=== PATIENT | female | born 1995 | race Two or more races ===

== ENCOUNTER 2024-07-28 10:42 | Outpatient (REF) | payer MEDICAID, OTHER, SELFPAY ==
--- NOTE | ~2024-07-28 | US_ITS ---
EXAMINATION: US DIAGNOSTIC ULTRASOUND BREAST, LEFT CLINICAL INFORMATION: 28-year-old female. Per patient, left breast pain x1 year 2-4 o'clock axis. Per provider, small 0.5 cm palpable nodules located at 6:00 and 7:00 left breast. COMPARISON: None available. TECHNIQUE: Ultrasound of the left breast is performed with real-time tsang scale imaging and color Doppler. Left breast was scanned from the 2:00 to the 9:00 axis to include both the areas of pain, and the palpable purported nodules at 6:00 and 7:00. FINDINGS: Real-time tsang scale and color Doppler ultrasound imaging of the 2:00 to the 9:00 axis left breast demonstrates dense breast parenchyma with a solitary small simple cyst measuring 6 x 4 x 3 mm at the 2:00 axis, 4 cm from the nipple. This does not appear to correlate with palpable region. Only dense tissue is seen at the regions of palpable concern 6:00 and 7:00 axis left breast. There is no mass, abnormal shadowing, additional cystic abnormality, or area of architectural abnormality. US/US breast LT limited mamm only IMPRESSION: -No findings suspicious for malignancy left breast. -Benign tiny incidental cyst left breast 2:00 axis, 4 cm from the nipple. -Only dense breast tissue seen in the regions of palpable concern left breast 6:00 and 7:00 axis. Recommend clinical management. ASSESSMENT: BI-RADS 2: Benign RECOMMENDATION: 1. Patient should be managed based on the clinical impression. Decision to proceed with biopsy should be based on clinical grounds and degree of clinical concern. Electronically signed by: Stephan Rodriguez MD 07/28/2024 12:16 PM EDT
== END 2024-07-28 10:43 | disposition home or self-care (01) ==
LOC: HO.MAMMO 10:42
PROVIDERS: PCP Internal Medicine; Visit Provider Internal Medicine
DX: N63.24 Unspecified lump in the left breast, lower inner quadrant (principal)
CPT/HCPCS: 76642

== ENCOUNTER → 2024-07-28 11:30 | Outpatient (BNV) | payer SELFPAY | PROVIDERS: PCP Internal Medicine; Visit Provider Radiology Diagnostic Radiology | DX: N63.21 Unspecified lump in the left breast, upper outer quadrant (principal) | CPT/HCPCS: 76642 ==

== ENCOUNTER 2025-08-09 | Outpatient (REF) | payer SELFPAY ==
--- OUTSIDE RECORDS SUMMARY | 2025-08-09 14:00 | XMS_ITS | Encounter Summary ---
Author Organization [employer] Address [address] [place] [address] 7 [place] [address] Care Team Providers Care Assistant Produce Manager Name Role Phone Anya Simental MD Primary Care Provide r Reason for Visit * Reason Comments pap Encounter Details Date Type Department Care Team (Latest Contact Info) Description 08/09/2025 2:00 PM EDT Procedure Visit [facility] [address], [place] [phone] Teresa Espana CNM [address] [place] [address] Encounter for initial insertion of intrauterine contraceptive device (Primary Dx); Cervical cancer screening; Encntr screen for infections w sexl mode of transmiss Social History Tobacco Use Types Packs/Day Years Used Date Smoking Tobacco: Never Passive Smoke Exposure: Never Smokeless Tobacco: Never Tobacco Cessation:Counseling Given: Not Answered Alcohol Use Standard Drinks/Week Comments Never 0 (1 standard drink = 0.6 oz pur e alcohol) Comments Unknown Intention Date Recorded No desire to become (finding) 1 Sex and Gender Information Value Date Recorded Sex Assigned at Female 05/22/2023 1:49 PM EDT Legal Sex Female 1:43 PM EDT Gender Identity Female 05/22/2023 1:49 PM EDT Sexual Orientation Straight 05/22/2023 1: 49 PM EDT documented as of this encounter Last Filed Vital Signs Vital Sign Reading Time Taken Comments Blood Pressure 108/70 08/09/2025 2:11 PM EDT Pulse 64 08/09/2025 2:11 PM EDT Temperature 37.2 C (98.9 F) 08/09/2025 2:11 PM EDT Respiratory Rate 14 08/09/2025 2:11 PM EDT Oxygen Saturation 98% 08/09/2025 2:11 PM EDT Inhaled Oxygen Concentration - - Weight 71.7 kg (158 lb) 08/09/2025 2:11 PM EDT Height - - Body Mass Index 31.85 07/14/2024 10:46 AM EDT documented in this encounter Progress Notes * Teresa Espana CNM - 08/09/2025 2:00 PM EDT Subjective Patient ID: Sheron Mcdaniel is a 29 y.o. female who presents for IUD insertion Prescribed progestin only pill as bridge method at last visit but she didn't start it. Last sexually active without a condom between 1-2 weeks ago. LMP 07/18/2025. Reviewed risk of today andthat testing today may not be accurate. Will defer IUD insertion today. Would like to do pap today. Review of Systems Genitourinary: Negative for dysuria, menstrual problem, pelvic pain, vaginal bleeding, vaginal discharge and vaginal pain. Objective BP 108/70 (BP Location: Left arm, Patient Position: Sitting, BP Cuff Size: Adult) Pulse 64 Temp98.9 ??F (37.2 ??C) (Oral) Resp 14 Wt 158 lb (71.7 kg) LMP 07/18/2025 (Exact Date) SpO2 98% BMI 31.85 kg/m?? Physical Exam Air Transportation Provider present: declines lodging facilities manager. Constitutional: Appearance: Normal appearance. Genitourinary: General: Normal vulva. Labia: Right: No rash, tenderness, lesion or injury. Left: No rash, tenderness, lesion or injury. Vagina: Normal. No signs of injury and foreign body. No vaginal discharge, erythema, tenderness, bleeding or lesions. Cervix: No cervical motion tenderness, discharge, friability, lesion, erythema, cervical bleeding or eversion. Uterus: Normal. Not enlarged and not tender. Adnexa: Right adnexa normal and left adnexa normal. Right: No mass, tenderness or fullness. Left: No mass, tenderness or fullness. Neurological: Mental Status: She is alert. Psychiatric: Mood and Affect: Mood normal. Behavior: Behavior normal. Assessment/Plan Diagnoses and all orders for this visit: Encounter for initial insertion of intrauterine contraceptive device - POCT , urine manually resulted Last sexually active without a condom between 1 and 2 weeks ago. Reviewed risk of today and that testing today may not be accurate. Will defer IUD insertion today. Would like to do pap today. Declines bridge method. Together we agree to have her return for IUD insertion next week. She expects menses in next few days. Please let me know if no menses when expected. Either abstain from sex or use condoms consistently until appointment. Offered condoms today, declined. Would like Liletta at next appointment. Advised to take Tylenol or ibuprofen with food 1 hour prior to appointment. Cervical cancer screening - Pap Smear Pap today. Repeat 3 years if normal. Encntr screen for infections w sexl mode of transmiss - STI testing add on (NG, CT, Trich) Pap based STI testing. documented in this encounter Plan of Treatment Upcoming Encounters Date Type Department Care Team (Late st Contact Info) Description 08/17/2025 10:30 AM EST Procedure Visit [facility] [address] [place] [address] Teresa Espana CNM [address] [place] [address] Scheduled Orders Name Type Priority Associated Diagnoses Orde r Schedule Pap Smear Pathology and Cytology Routine Cervical cancer screening Ordered: 08/09/2025 STI testing add on (NG, CT, Trich) Pathology and Cytology Routine Encntr screen for infections w sexl mode of transmiss Ordered: 08/09/2025 documented as of this encounter Procedures Procedure Name Priority Date/Time Associated Diagnosis Comments POCT , URINE Routine 08/09/2025 2:50 PM EDT Encounter for initial insertion of intrauterine contraceptive device documented in this encounter Results * POCT , urine manually resulted (08/09/2025 2:50 PM EDT) Preg Test, Ur Negative Negative, Indeterminate, None Detected, Invalid, Specimen unsatisfactory for evaluation, Weakly Positive, 2+ QC Media Lot # [id number] Lot# Expiration Date [id number] Urine 08/09/2025 2:50 PM EDT Teresa Espana CNM POINT OF CARE TEST ENTER/ EDIT ORDERABLES Final Result documented in this encounter Visit Diagnoses Diagnosis Encounter for initial insertion of intrauterine contraceptive device- Primary Cervical cancer screening Screening for malignant neoplasm of the cervix Encntr screen for infections w sexl mode of transmiss documented in this encounter Care Teams Assistant Produce Manager Relationship Specialty Start Date End Date Anya Simental MD [address] [place] [address] PCP - General Internal Medicine 06/07/25 documented as of this encounter
--- OUTSIDE RECORDS SUMMARY | 2025-08-10 09:13 | XMS_ITS | Encounter Summary ---
Author Organization [employer] Address [address] [place] [address] 7 [place] [address] Care Team Providers Care Corrections Nurse Name Role Phone Anya Simental MD Primary Care Provide r Encounter Details Date Type Department Care Team (Latest Contact Info) Description 08/09/2025 Travel Social History Tobacco Use Types Packs/Day Years Used Date Smoking Tobacco: Never Passive Smoke Exposure: Never Smokeless Tobacco: Never Alcohol Use Standard Drinks/Week Comments Never 0 (1 standard drink = 0.6 oz pur e alcohol) Comments Unknown Sex and Gender Information Value Date Recorded Sex Assigned at Female 05/22/2023 1:49 PM EDT Legal Sex Female 1:43 PM EDT Gender Identity Female 05/22/2023 1:49 PM EDT Sexual Orientation Straight 05/22/2023 1: 49 PM EDT documented as of this encounter Plan of Treatment Upcoming Encounters Date Type Department Care Team (Late st Contact Info) Description 08/17/2025 10:30 AM EST Procedure Visit [facility] [address] [place] [address] Teresa Espana CNM [address] [place] [address] documented as of this encounter Visit Diagnoses Not on filedocumented in this encounter Care Teams Corrections Nurse Relationship Specialty Start Date End Date Anya Simental MD [address] [place] [address] PCP - General Internal Medicine 06/07/25 documented as of this encounter
--- OUTSIDE RECORDS SUMMARY | 2025-08-10 09:13 | XMS_ITS | Clinical Summary ---
Author Organization [employer] Address [address] [place] [address] [address] [place] [address] Care Team Providers Care Superintendent Storage Area Name Role Phone Anya Simental MD Primary Care Provide r Allergies No known active allergies Medications Drospirenone (Slynd) 4 MG tablet Take 1 tablet by mouth Once per day. 28 tablet 11 07/13/2025 Active Active Problems Problem Noted Date Diagnosed Date Varicose veins of leg with pain, left 07/14/2024 Assessment & Plan (07/14/2024 11:38 AM EDT): I recommended compression stockings Vascular referral in Breast nodule 07/14/2024 Nexplanon removal 07/14/2024 Screening examination for STI 07/14/2024 Irregular periods 07/14/2024 Encounters Date Type Department Care Team Description 08/09/2025 2:00 PM EDT Procedure Visit [facility] [address] [place] [phone] Teresa Espana CNM Encounter for initial insertion of intrauterine contraceptive device (Primary Dx); Cervical cancer screening; Encntr screen for infections w sexl mode of transmiss 08/09/2025 Travel 07/13/2025 2:45 PM EDT Procedure Visit [facility] [address] [place] [address] Teresa Espana CNM Nexplanon removal (Primary Dx); Family planning counseling 07/13/2025 Travel 06/07/2025 Telephone [facility] [address] [place] [address] [phone] Anya Simental MD Telephone Call 05/24/2025 Telephone [facility] [address] [place] [address] Teresa Espana CNM chart prep 05/18/2025 Travel from Last 3 Months Social History Tobacco Use Types Packs/Day Years [...] Orientation Straight 05/22/2023 1: 49 PM EDT Last Filed Vital Signs Vital Sign Reading Time Taken Comments Blood Pressure 108/70 08/09/2025 2:11 PM EDT Pulse 64 08/09/2025 2:11 PM EDT Temperature 37.2 C (98.9 F) 08/09/2025 2:11 PM EDT Respiratory Rate 14 08/09/2025 2:11 PM EDT Oxygen Saturation 98% 08/09/2025 2:11 PM EDT Inhaled Oxygen Concentration - - Weight 71.7 kg (158 lb) 08/09/2025 2:11 PM EDT Height 150 cm (4' 11.06 ) 07/14/2024 10:46 AM ED T Body Mass Index 31.85 07/14/2024 10:46 AM EDT Plan of Treatment Upcoming Encounters Date Type Department Care Team (Late st Contact Info) Description 08/17/2025 10:30 AM EST Procedure Visit [facility] [address] [place] [phone] Teresa Espana CNM [address] [place] [address] Health Maintenance Due Date Last Done Comments Depression Screening 1995 HIV Screening 1995 SDOH Screening 1995 Alcohol/Substance Use Screening 2007 HPV Vaccines (1 - 3-dose series) 12/11/2010 Hepatitis C Screening 12/11/2013 DTaP/Tdap/Td Vaccines (1 - Tdap) 12/11/2014 Hepatitis B Vaccines (1 of 3 - 19+ 3-dose series) 12/11/2014 Pap Smear 12/11/2016 Dental Oral Exam 03/31/2025 09/29/2024 Dental Prophylaxis 03/31/2025 09/29/2024 COVID-19 Vaccine (1 - 2023-2 5 season) 2025 Influenza Vaccine (#1) 2025 Dental X-Ray: Bitewings 09/30/2025 09/29/2024 Disability Screening 05/18/2026 05/18/2025 Family Planning (PISQ) 08/09/2026 08/09/2025 Tobacco Screening 08/09/2026 08/09/2025 Dental X-Ray: Full Mouth 09/30/2027 09/29/2024 Zoster Vaccines (1 of 2) 12/11/2045 RSV Patients and Pa tients Aged 60 years or older (1 - 1-dose 75+ series) 12/11/2070 HIB Vaccines Aged Out No longer eligi ble based on patient's age to complete this topic Hepatitis A Vaccines Aged Out No long er eligible based on patient's age to complete this topic IPV Vaccines Aged Out No longer eligi ble based on patient's age to complete this topic Meningococcal B Vaccine Aged Out No l onger eligible based on patient's age to complete this topic Meningococcal Vaccine Aged Out No quinten mango eligible based on patient's age to complete this topic Pneumococcal Vaccine: Pediat rics (0 to 5 Years) and At-Risk Patients (6 to 49) Years Aged Out No longer eligi ble based on patient's age to complete this topic RSV under 20 months Aged Out No longe r eligible based on patient's age to complete this topic Rotavirus Vaccines Aged Out No longer eligible based on patient's age to complete this topic Procedures Procedure Name Priority Date/Time Associated Diagnosis Comments POCT , URINE Routine 08/09/2025 2:50 PM EDT Encounter for initial insertion of intrauterine contraceptive device GA REMOVAL NON-BIODEGRADABLE DRUG DELIVERY IMPLANT Routine 07/13/2025 2:55 PM EDT Nexplanon removal PROPHYLAXIS - ADULT Routine 09/29/2024 1 0:00 AM EST INTRAORAL - COMPLETE SERIES OF RADIOGRAPHIC IMAGES Routine 09/29/2024 10:00 AM EST PERIODIC ORAL EVALUATION - ESTABLISHED PATIENT Routine 09/29/2024 10:00 AM EST from Last 3 Months or Most Recently Relevant to Health Maintenance Results * POCT , urine manually resulted (08/09/2025 2:50 PM EDT) Preg Test, Ur Negative Negative, Indeterminate, None Detected, Invalid, Specimen unsatisfactory for evaluation, Weakly Positive, 2+ QC Media Lot # [id number] Lot# Expiration Date [id number] Urine 08/09/2025 2:50 PM EDT Teresa Espana CNM POINT OF CARE TEST ENTER/ EDIT ORDERABLES Final Result * GA REMOVAL NON-BIODEGRADABLE DRUG DELIVERY IMPLANT (07/13/2025 2:55 PM EDT) Narrative Teresa Espana CNM - 07/13/2025 2:55 PM EDT Teresa Espana CNM 07/13/2025 3:36 PM Insertion/Removal of Contraceptive Capsule Date/Time: 07/13/2025 2:55 PM Performed by: Teresa Espana CNM Authorized by: Teresa Espana CNM Confirmed correct patient, procedure, site, and patient consented: Yes Participating Staff: Teresa Espana CNM Participating Staff: Fidelina Zimmerman [place] Consent: Consent obtained: Verbal and written Consent given by: Patient Procedural risks and benefits discussed: Yes Patient questions answered: yes Instructions and paperwork completed: yes Dinosaur Protocol: Patient states understanding of procedure being performed: yes Site marked: yes Indication: Indication: presence of non-biodegradable drug delivery implant Pre-procedure: Pre-procedure timeout performed: yes Prepped with: povidone-iodine Local anesthetic: 2ml 2% lidocaine. The site was cleaned and prepped in a sterile fashion: yes Procedure: Procedure: Removal Small stab incision was made in arm: yes Left/right: Left Palpation confirms placement by provider and patient: yes Site was closed with steri-strips and pressure bandage applied: yes Comments: Due to curvature of one implant, two small incisions required for removal, one for each implant. Implants removed intact. Teresa Espana CNM IN CLINIC/BEDSIDE ORDERAB LES Final Result from Last 3 Months Insurance [facility] F[facility] D[facility]AL-[facility] ADULT DENTAL - HSN FULL (MEDICAID) Care Teams Superintendent Storage Area Relationship Specialty Start Date End Date Anya Simental MD [address] [place] [phone] PCP - General Internal Medicine 06/07/25
[2025-08-14 20:33] LABS: C. trachomatis RNA TMA NOT DETECTED (NOT DETECTED); N. gonorrhoeae RNA TMA NOT DETECTED (NOT DETECTED); Trichomonas (NAAT) NOT DETECTED (NOT DETECTED)
== END 2025-08-09 00:01 | disposition home or self-care (01) ==
LOC: HO.LNP
PROVIDERS: Visit Provider Advanced Practice Midwife
DX: Z12.4 Encounter for screening for malignant neoplasm of cervix (principal); Z20.2 Contact with and (suspected) exposure to infections with a predominantly sexual mode of transmission
CPT/HCPCS: 87491; 87591; 87661; 88175

== ENCOUNTER 2025-08-17 10:53 | Outpatient (REF) | payer MEDICAID, OTHER, SELFPAY ==
--- OUTSIDE RECORDS SUMMARY | 2025-08-17 10:30 | XMS_ITS | Encounter Summary ---
Author Organization [employer] Address [address] [place] [address] 7 [place] [address] Care Team Providers Care Operations Engineer Name Role Phone Anya Simental MD Primary Care Provide r Reason for Visit * Reason Comments procedure Encounter Details Date Type Department Care Team (Latest Contact Info) Description 08/17/2025 10:30 AM EST Procedure Visit [facility] [address] [place], [place] [phone] Teresa Espana CNM [address] [place] [address] Encounter for IUD insertion (Primary Dx); Encounter for test, result positive Social History Tobacco Use Types Packs/Day Years Used Date Smoking Tobacco: Never Passive Smoke Exposure: Never Smokeless Tobacco: Never Tobacco Cessation:Counseling Given: Not Answered Alcohol Use Standard Drinks/Week Comments Never 0 (1 standard drink = 0.6 oz pur e alcohol) Estimated Date of Delivery Comme nts Yes 04/24/2026 Sex and Gender Information Value Date Recorded Sex Assigned at Female 05/22/2023 1:49 PM EDT Legal Sex Female 1:43 PM EDT Gender Identity Female 05/22/2023 1:49 PM EDT Sexual Orientation Straight 05/22/2023 1: 49 PM EDT documented as of this encounter Last Filed Vital Signs Vital Sign Reading Time Taken Comments Blood Pressure 100/60 08/17/2025 10:28 AM EST Pulse 70 08/17/2025 10:28 AM EST Temperature 36.6 C (97.9 F) 08/17/2025 10:28 AM EST Respiratory Rate 14 08/17/2025 10:28 AM EST Oxygen Saturation 100% 08/17/2025 10:28 AM EST Inhaled Oxygen Concentration - - Weight 70.5 kg (155 lb 6.4 oz) 08/17/2025 10:28 AM EST Height - - Body Mass Index 31.33 07/14/2024 10:46 AM EDT documented in this encounter Progress Notes * Teresa Espana, ARCHIE - 08/17/2025 10:30 AM EST Subjective Patient ID: Sehron Mcdaniel is a 29 y.o. female who presents for IUD Insertion deferred at last visit due to inability to rule out . Would like Gini. She had some cramping end of last week, then 2 days of light bleeding starting 08/14. Pap pending, Gonorrhea/Chlamydia/trichomonas negative 08/09/2025. Urine hcg positive today. EGA 4w2d. Had negative home test yesterday. Denies nausea, vomiting or breast tenderness. No current bleeding or cramping. Shocked by news, requested to call partner to discuss further. I left the room during this time, then returned to finish visit. Review of Systems Objective BP 100/60 (BP Location: Left arm, Patient Position: Sitting, BP Cuff Size: Adult) Pulse 70 Temp97.9 ??F (36.6 ??C) (Oral) Resp 14 Wt 155 lb 6.4 oz (70.5 kg) LMP 07/18/2025 (Exact Date) SpO2 100% BMI 31.33 kg/m?? Physical Exam Constitutional: Appearance: Normal appearance. Neurological: Mental Status: She is alert. Psychiatric: Mood and Affect: Mood normal. Behavior: Behavior normal. Assessment/Plan Diagnoses and all orders for this visit: Encounter for IUD insertion - POCT , urine manually resulted Positive test today. IUD contraindicated, not inserted. Recent bleeding likely implantation bleeding but will rule out ectopic. For serum hcg today, will repeat in 48h. Will contact with results and plan. Seek care urgently if pelvic pain or bleeding recurs. Encounter for test, result positive - hCG, Total, Quantitative; Future Unplanned , undecided about plan and would like to discuss options. Discussed options, continue and care for baby, continue and proceed with adoption, terminate . Sheron is uncertain, but would [facility]. Seek care urgently if bleeding or abdominal pain. Would like bloodwork to confirm urine results. Reviewed that we should check hcg today and repeat in 48h due to light bleeding to rule out ectopic. documented in this encounter Plan of Treatment Scheduled Orders Name Type Priority Associated Diagnoses Orde r Schedule hCG, Total, Quantitative Lab Routine Encounter for test, result positive Expected: 08/17/2025 (Approximate), Expires: 08/17/2026 documented as of this encounter Procedures Procedure Name Priority Date/Time Associated Diagnosis Comments POCT , URINE Routine 08/17/2025 10:34 AM EST Encounter for IUD insertion documented in this encounter Results * (ABNORMAL) POCT , urine manually resulted (08/17/2025 10:34 AM EST) Preg Test, Ur Positive (A) Negative, Indeterminate, None Detected, Invalid, Specimen unsatisfactory for evaluation, Weakly Positive, 2+ QC Media Lot # [id number] Lot# Expiration Date ,[id number] [phone] Urine 08/17/2025 10:3 4 AM EST Teresa Espana CNM POINT OF CARE TEST ENTER/ EDIT ORDERABLES Final Result documented in this encounter Visit Diagnoses Diagnosis Encounter for IUD insertion- Primary Insertion of intrauterine contraceptive device Encounter for test, result positive documented in this encounter Care Teams Operations Engineer Relationship Specialty Start Date End Date Anya Simental MD [address] [place] [address] PCP - General Internal Medicine 06/07/25 documented as of this encounter
--- OUTSIDE RECORDS SUMMARY | 2025-08-17 13:12 | XMS_ITS | Clinical Summary ---
Author Organization [employer] Address [address] [facility] [address] [place] [address] Care Team Providers Care Mva Operator Name Role Phone Anya Simental MD Primary [...] examination for STI 07/14/2024 Irregular periods 07/14/2024 Estimated Date of Delivery Comme nts Yes 04/24/2026 Encounters Date Type Department Care Team Description 08/17/2025 10:30 AM EST Procedure Visit [facility] [address] [place] [phone] Teresa Espana CNM Encounter for IUD insertion (Primary Dx); Encounter for test, result positive 08/17/2025 Travel 08/16/2025 Telephone [facility] [address] [place] [phone] Damaris Zimmerman MA 08/09/2025 2:00 PM EDT Procedure Visit [facility] [address] [place] [phone] Teresa Espana CNM Encounter for initial insertion of intrauterine contraceptive device (Primary Dx); Cervical cancer screening; Encntr screen for infections w sexl mode of transmiss 08/09/2025 Travel 07/13/2025 2:45 PM EDT Procedure Visit [facility] [address] [place] [phone] Teresa Espana CNM Nexplanon removal (Primary Dx); Family planning counseling 07/13/2025 Travel 06/07/[address] [phone] Anya Simental MD Telephone Call 05/24/[address] [phone] Teresa Espana CNM chart prep 05/18/2025 Travel from Last 3 Months Social History Tobacco Use Types Packs/Day Years Used Date Smoking Tobacco: Never Passive Smoke Exposure: Never Smokeless Tobacco: Never Tobacco Cessation:Counseling Given: Not Answered Alcohol Use Standard Drinks/Week Comments Never 0 (1 standard drink = 0.6 oz pur e alcohol) Estimated Date of Delivery Comme nts Yes 04/24/2026 Intention Date Recorded No desire to become [...] 6.4 oz) 08/17/2025 10:28 AM EST Height 150 cm (4' 11.06 ) 07/14/2024 10:46 AM ED T Body Mass Index 31.33 07/14/2024 10:46 AM EDT Plan of Treatment Health Maintenance Due Date Last Done Comments [...] Family Planning (PISQ) 08/09/2026 08/09/2025 Tobacco Screening 08/17/2026 08/17/2025 Dental X-Ray: Full Mouth 09/30/2027 09/29/2024 Zoster Vaccines (1 of 2) 12/11/2045 HIB Vaccines Aged Out No longer eligi [...] patient's age to complete this topic RSV Patients and Pa tients Aged 60 years or older (No Doses Required) Completed RSV under 20 months Aged Out No longe r eligible based on patient's age to complete this topic Rotavirus Vaccines Aged Out No longer eligible based on patient's age to complete this topic Procedures Procedure Name Priority Date/Time Associated Diagnosis Comments POCT , URINE Routine 08/17/2025 10:34 AM EST Encounter for IUD insertion CHLAMYDIA/N. GONORRHOEAE AND T. VAGINALIS RNA, QUAL,TMA Routine 08/09/2025 3:00 PM EDT Encntr screen for infections w sexl mode of transmiss POCT , URINE Routine 08/09/2025 2:50 PM EDT Encounter for initial insertion of intrauterine contraceptive device NV REMOVAL NON-BIODEGRADABLE DRUG DELIVERY IMPLANT Routine 07/13/2025 2:55 PM EDT Nexplanon removal PROPHYLAXIS - ADULT Routine 09/29/2024 1 0:00 AM EST INTRAORAL - COMPLETE SERIES OF RADIOGRAPHIC IMAGES Routine 09/29/2024 10:00 AM EST PERIODIC ORAL EVALUATION - ESTABLISHED PATIENT Routine 09/29/2024 10:00 AM EST from Last 3 Months or Most Recently Relevant to Health Maintenance Results * (ABNORMAL) POCT , urine manually resulted (08/17/2025 10:34 AM EST) Only the most recent of2 resultswithin the time period is included. Preg Test, Ur Positive (A) Negative, Indeterminate, None Detected, Invalid, Specimen unsatisfactory for evaluation, Weakly Positive, 2+ QC Media Lot # [id number] Lot# Expiration Date 7 Urine 08/17/2025 10:3 4 AM EST Teresa Espana CNM POINT OF CARE TEST ENTER/ EDIT ORDERABLES Final Result * STI testing add on (NG, CT, Trich) (08/09/2025 3:00 PM EDT) Trichomonas (NAAT) NOT DETECTED NOT DETECTED [facility] Comment:The analytical perfo rmance characteristics of thisassay have been determined by [facility]. Themodifications have not been cleared or approved bythe FDA. This assay has been validated pursuant to theCLIA regulations and is used for clinical purposes.For additional information, please refer tohttp://education.[employer].com/faq/Trichomonastma(This link is being provided for information/educational purposes only.)THIS TEST WAS PERFORMED AT:[facility] [place] [phone] LIN MD CTNG Ref Lab NOT DETECTED NOT DETECTED [facility] NG Ref Lab NOT DETECTED NOT DETECTED [facility] ThinPrep vial Cervix uteri structure / Unknown 08/09/2025 3:00 PM EDT 08/10/2025 8:07 AM EDT Narrative [facility] - 08/14/2025 8:33 PM EST Collection Date: [id number] by: DAMARIS Sparrow: Cervix us Teresa Espana CNM LAB CYTOLOGY ORDERABLES F inal Result [facility] [address] [place] [address] [phone] * NV REMOVAL NON-BIODEGRADABLE DRUG DELIVERY IMPLANT (07/13/2025 2:55 PM EDT) Teresa Dos Santos CNM - 07/13/2025 2:55 PM EDT Teresa Espana CNM 07/13/2025 3:36 PM Insertion/Removal of Contraceptive Capsule Date/Time: 07/13/2025 2:55 PM Performed by: Teresa Espana CNM Authorized by: Teresa Espana CNM Confirmed correct patient, procedure, site, and patient consented: Yes Participating Staff: Teresa Espana CNM Participating Staff: Damaris Zimmerman MA Consent: Consent obtained: Verbal and written Consent given by: Patient Procedural risks and benefits discussed: Yes Patient questions answered: yes Instructions and paperwork completed: yes [place] Protocol: Patient states understanding of procedure being [...] Final Result from Last [address] [place] [address] [place] [address] LIMITED HSN FULL DENTAL-[facility] MEDICAID LIMITED ADULT DENTAL - N FULL (MEDICAID) Care Teams Mva Operator Relationship Specialty Start Date End Date Anya Simental MD [address] [place] [phone] PCP - General Internal Medicine 06/07/25
--- OUTSIDE RECORDS SUMMARY | 2025-08-17 13:12 | XMS_ITS | Encounter Summary ---
Author Organization [employer] Address [address] [facility] [address] [place] [address] Care Team Providers Care Cafeteria Associate Name Role Phone Anya Simental MD Primary Care Provide r Encounter Details Date Type Department Care Team (Late st Contact Info) Description 08/16/2025 Telephone [facility] [address] [place] [address] Fidelina Zimmerman MA Social History Tobacco Use Types Packs/Day Years [...] PM EDT documented as of this encounter Miscellaneous Notes * Telephone Encounter - Fidelina Zimmerman MA - 08/16/2025 2:15 PM EST Chart Prep Labs: done Images: not applicable Referrals: not applicable Vaccines due: Covid, Flu, Tdap, Hep B, and HPV Screenings: pap smear Overdue care gaps: SBIRT, SDOH, and PHQ-9 documented in this encounter Plan of Treatment Not on file documented as of this encounter Visit Diagnoses Not on filedocumented in this encounter Care Teams Cafeteria Associate Relationship Specialty Start Date End Date Anya Simental MD [address] [place] [address] PCP - General Internal Medicine 06/07/25 documented as of this encounter
--- OUTSIDE RECORDS SUMMARY | 2025-08-17 13:12 | XMS_ITS | Encounter Summary ---
Author Organization [employer] Address [address] [facility] [address] [place] [address] Care Team Providers Care Expanding Machine Operator Name Role Phone Anya Simental MD Primary Care Provide r Encounter Details Date Type Department Care Team (Latest Contact Info) Description 08/17/2025 Travel Social History Tobacco Use Types Packs/Day [...] as of this encounter Plan of Treatment Not on file documented as of this encounter Visit Diagnoses Not on filedocumented in this encounter Care Teams Expanding Machine Operator Relationship Specialty Start Date End Date Anya Simental MD [address] [place] [phone] PCP - General Internal Medicine 06/07/25 documented as of this encounter
== END 2025-08-17 10:54 | disposition home or self-care (01) ==
LOC: HO.HHCL 10:53
PROVIDERS: Visit Provider Advanced Practice Midwife
DX: Z32.01 Encounter for pregnancy test, result positive (principal)
CPT/HCPCS: 36415; 84702